=== PATIENT | male | born 1950 | race Caucasian/White ===

== ENCOUNTER → 2018-05-30 | Outpatient (CLI) | payer MEDICARE | LOC: M RAD 12:30 | DX: H71.12 Cholesteatoma of tympanum, left ear (principal) | CPT/HCPCS: 70480 ==

== ENCOUNTER → 2024-09-26 | Outpatient (CLI) | payer MEDICARE | LOC: M RAD 15:52 | PROVIDERS: ATTEND Physician Assistant | DX: H72.02 Central perforation of tympanic membrane, left ear (principal) ==

== ENCOUNTER 2024-12-26 09:52 | Day surgery (SDC) | payer MEDICARE ==
[~2024-12-26] VITALS: Ht 172.7 cm; Wt 111.1 kg
[~2024-12-26 09:52] MED LIST: ATEN25TA PO; LOVA40TA PO
[2024-12-26] MEDS ORDERED: fentaNYL 250 MCG/5 ML INJECTION As Ordered ONE (10:38)
[2024-12-26] MEDS ORDERED: ONDANSETRON 4MG 2ML VIAL As Ordered ONE (10:39)
[2024-12-26] MEDS ORDERED: ACETAMINOPHEN 1000MG/100ML IV BAG As Ordered ONE (10:39)
[2024-12-26] MEDS ORDERED: LIDOCAINE 2% 100MG/5ML SDV (FOR ANES.) As Ordered ONE (10:39)
[2024-12-26] MEDS ORDERED: propofoL 200 MG/20 ML VIAL As Ordered ONE (10:39)
[2024-12-26] MEDS ORDERED: ROCURONIUM BROMIDE 50MG/5ML VIAL As Ordered ONE (10:39)
[2024-12-26] MEDS ORDERED: SUGAMMADEX SODIUM 500 MG/5 ML VIAL As Ordered ONE (10:39)
[2024-12-26] MEDS ORDERED: MIDAZOLAM INJ 2MG/2ML VIAL As Ordered ONE (10:39)
[2024-12-26] MEDS ORDERED: SUCCINYLCHOLINE 100MG/5ML SYRINGE As Ordered ONE (10:49)
[2024-12-26] MEDS ORDERED: dexmedeTOMIDine (4MCG/ML)200MCG/50ML BTL (PRECEDEX) As Ordered ONE (10:54)
[2024-12-26] MEDS ORDERED: ePHEDrine SULFATE 25 MG/5 ML(5MG/ML) SYRINGE As Ordered ONE (13:18)
[2024-12-26] MEDS ORDERED: PHENYLephrine 500MCG 5ML (100MCG/ML) SYRINGE As Ordered ONE (13:18)
[2024-12-26] MEDS ORDERED: HYDROmorphone HCL 2MG/ML 1ML VIAL As Ordered ONE (13:38)
[2024-12-26] MEDS: LIDOCAINE W/EPINEPHRINE 1% 20ML VIAL As Ordered ONE (13:45)
[2024-12-26] MEDS ORDERED: GLYCOPYRROLATE INJ 0.2 MG/ML 2 ML VIAL As Ordered ONE (13:47)
[2024-12-26] MEDS: EPINEPHrine 1MG/ML INJ 30ML MD-VIAL As Ordered ONE (14:02)
[2024-12-26] MEDS ORDERED: PHENYLEPHRINE 10MG/ML 1ML VIAL As Ordered ONE (14:17)
[2024-12-26] MEDS: CIPRODEX OTIC SUSP 7.5ML As Ordered ONE (15:13)
[2024-12-26] MEDS ORDERED: oxyCODONE 5MG TAB PO PRN (16:30)
[2024-12-26] MEDS ORDERED: ONDANSETRON 4MG 2ML VIAL IV PRN (16:30)
[2024-12-26] MEDS ORDERED: fentaNYL 100 MCG/2 ML INJECTION IV PRN (16:30)
[2024-12-26] MEDS ORDERED: HYDROMORPHONE HCL 0.5 MG/ 0.5 ML SYRINGE IV PRN (16:30)
[2024-12-26] MEDS ORDERED: LR 1,000 ML IV SCH ×2 (16:30→17:35)
[2024-12-26] MEDS ORDERED: diazePAM 10MG/2ML SYRINGE IV PRN (17:45)
[2024-12-26] MEDS: diazePAM 5MG TABLET PO PRN (17:53)
[2024-12-26 18:07] VITALS: BP 141/66; TEMP 98.1; O2SAT 98
== END 2024-12-26 18:33 | disposition home or self-care (01) ==
LOC: M SDC 09:52
PROVIDERS: ATTEND Otolaryngology
DX: H71.02 Cholesteatoma of attic, left ear (principal); I10 Essential (primary) hypertension; E78.00 Pure hypercholesterolemia, unspecified; Z79.899 Other long term (current) drug therapy
CPT/HCPCS: 69646; 88305; J0131; J0171; J0330; J1100; J1171; J1596; J2250; J2371; J2405; J3010